=== PATIENT | male | born 1995 | race Asian ===

== ENCOUNTER 2017-03-03 04:32 | Emergency (ER) | payer OTHER ==
[~2017-03-03] VITALS: Ht 172.7 cm; Wt 59.1 kg
[~2017-03-03 04:32] MED LIST: NO HOME MEDICATIONS; TYLENOL #3 301 UDTAB PO
[2017-03-03 04:34] VITALS: BP 134/70; TEMP 98
[2017-03-03] MEDS ORDERED: FLEXERIL 1010 MG/TAB PO (05:18)
[2017-03-03 06:06] VITALS: PULSE 86
== END 2017-03-03 06:07 | disposition home or self-care (01) ==
LOC: COL.ER 04:32
DX: M54.5 Low back pain (principal); X50.0XXA Overexertion from strenuous movement or load, initial encounter
CPT/HCPCS: J1885